=== PATIENT | male | born 1965 | race Caucasian/White ===

== ENCOUNTER → 2016-09-03 | Outpatient (CLI) | payer OTHER | LOC: EMI 08:00 | DX: R43.0 Anosmia (principal) | CPT/HCPCS: 70551 ==

== ENCOUNTER 2020-09-23 08:04 | Emergency (ER) | payer OTHER ==
[2020-09-23 09:13] LABS: HEMOGLOBIN 16.1 gm/dl (14.0-17.5); RED BLOOD COUNT 5.11 M/UL (4.20-5.50); WHITE BLOOD COUNT 7.7 K/UL (4.5-11.0)
[2020-09-23 09:45] LABS: BUN/CREATININE RATIO 15 (0-10)
[2020-09-23] MEDS ORDERED: ZITHROMAX250 MG PO (10:21)
== END 2020-09-23 10:34 | disposition home or self-care (01) ==
LOC: ER1 08:04
PROVIDERS: Emergency Medicine
DX: U07.1 COVID-19 (principal); J18.9 Pneumonia, unspecified organism; G20 Parkinson's disease
CPT/HCPCS: 71045; 80053; 82550; 82553; 83874; 84484; 85025; 85379; 99283; J7030

== ENCOUNTER → 2020-10-17 | Outpatient (CLI) | payer OTHER ==
[~2020-10-17] MED LIST: ZITHROMAX250 MG PO
== END ==
LOC: RAD 11:40
DX: J18.9 Pneumonia, unspecified organism (principal); R91.8 Other nonspecific abnormal finding of lung field
CPT/HCPCS: 71046

== ENCOUNTER → 2020-11-03 | Outpatient (CLI) | payer OTHER | LOC: RAD 10:03 | DX: R91.8 Other nonspecific abnormal finding of lung field (principal) | CPT/HCPCS: 71046 ==